=== PATIENT | male | born 1970 | race Caucasian/White ===

== ENCOUNTER 2018-08-08 13:33 | Emergency (ER) | payer OTHER ==
[~2018-08-08] VITALS: Ht 188 cm; Wt 104.3 kg
[~2018-08-08 13:33] MED LIST: BACTRIM DS TAB1 EACH PO; BANOPHEN25 M1 PO; CATAPRES PO; COLACE100 MG PO; FLOMAX PO; FLUCONAZOL400 MG/205 IVPB; GLUCOPHAGE850 MG PO; HYDROCODONE-AP1 EAC6 PO; HYOSCYAMINE0.125 MG PO; NOHOMEMEDICATIONS; NORCO 5-325 TA1 EACH PO; PERCOCET PO; PHENERGAN 25 MG25 M1 PO; TRADJENTA5 MG PO
[2018-08-08 14:01] LABS: ABSOLUTE BASOPHILS 0.1 thou/uL (0.0-0.2); ABSOLUTE EOSINOPHILS 0.2 thou/uL (0.0-0.7); ABSOLUTE LYMPHOCYTES 3.2 thou/uL (0.8-5.3); ABSOLUTE MONOCYTES 0.8 thou/uL (0.0-1.2); ABSOLUTE NEUTROPHILS 6.3 thou/uL (1.6-8.1); BASOPHILS 1.2 %; EOSINOPHILS 1.6 %; HEMATOCRIT 42.4 % (42.0-52.0); HEMOGLOBIN 14.2 gm/dL (14.0-18.0); MCH 29.5 pg (26.0-34.0); MCHC 33.5 g/dL (28.0-37.0); MONOCYTES 7.9 %; MPV 7.9 fl. (7.2-11.1); NUCLEATED RBCS 0 /100WBC; PLATELET COUNT* 309 thou/uL (150-400); POLYS 59.3 %; RBC 4.82 mil/uL (4.50-6.00); RDW-CV 13.6 % (10.5-14.5); WBC 10.6 thou/uL (4.0-11.0)
[2018-08-08 14:16] LABS: ANION GAP 9 mmol/L (7-16); BUN 21 mg/dL (7-18); CALCIUM 8.2 mg/dL (8.5-10.1); CHLORIDE 100 mmol/L (98-107); CO2 25 mmol/L (21-32); CREATININE 1.4 mg/dL (0.6-1.3); GLUCOSE 387 mg/dL (70-99); POTASSIUM 3.2 mmol/L (3.5-5.1); SODIUM 134 mmol/L (136-145)
[2018-08-08 14:24] LABS: ALBUMIN 3.1 g/dL (3.4-5.0); ALKALINE PHOSPHATASE 126 U/L (46-116); SGOT 15 U/L (15-37); SGPT 26 U/L (30-65); TOTAL BILIRUBIN 0.2 mg/dL (<0.1-1.0); TOTAL PROTEIN 6.3 g/dL (6.4-8.2); TROPONIN-I LEVEL <0.06 ng/mL (<0.06)
[2018-08-08] MEDS ORDERED: CLONIDINE0.1 PO (15:42)
[2018-08-08 15:49] VITALS: BP 152/102
--- NOTE | 2018-08-08 16:43 | EKG ---
[place] [address] ELECTROCARDIOGRAM REPORT Name: RIGOBERTO HAQ Room: [facility]#: [id number] Admission: 08/08/18 Attend Phys: Discharge: 08/08/18 Date of : 74 Report #: [id number] THIS REPORT FOR: //name// [facility] ED Test Date: 2018-08-08 Test Time: 13:49:07 Pat Name: RIGOBERTO HAQ Department: Room: Gender: M Sales Service Representative: : 1970 Requested By: Temi Camacho Order Number: [id number] MD: Konstantin Truong Measurements Intervals [place] Rate: 106 P: 49 WI: 188 QRS: -10 QRSD: 114 T: 48 QT: 355 QTc: 472 Interpretive Statements Sinus tachycardia Incomplete right bundle branch block ST elev, probable normal early repol pattern Baseline wander in lead(s) V4 Compared to ECG 11/02/2014 11:30:57 Sinus rhythm no longer present Electronically Signed On 08-08-2018 16:43:17 CDT by Konstantin Truong [email or web address] <ELECTRONICALLY SIGNED> By: Konstantin Truong MD, [facility] 08/08/18 1643 [id number] [id number] Konstantin Truong MD, [facility] /EPI
== END 2018-08-08 15:50 | disposition home or self-care (01) ==
LOC: M.ERS 13:33
PROVIDERS: Nurse Practitioner Family
DX: I10 Essential (primary) hypertension (principal); F17.200 Nicotine dependence, unspecified, uncomplicated